=== PATIENT | female | born 1955 | race Caucasian/White ===

== ENCOUNTER 2023-09-01 07:59 | Emergency (ER) | payer OTHER | END 2023-09-01 11:15 | disposition home or self-care (01) | LOC: CSHERS 07:59 | DX: M62.830 Muscle spasm of back (principal); M79.7 Fibromyalgia; I10 Essential (primary) hypertension; F17.210 Nicotine dependence, cigarettes, uncomplicated; Z79.899 Other long term (current) drug therapy | CPT/HCPCS: 72040; 96372; 99283; J1885; J2360 ==

== ENCOUNTER 2024-02-10 11:12 | Outpatient (CLI) | payer OTHER | END 2024-02-10 11:13 | disposition home or self-care (01) | LOC: CSHMRI 11:12 | PROVIDERS: ATTEND Chiropractor | DX: G25.0 Essential tremor (principal); I67.89 Other cerebrovascular disease | CPT/HCPCS: 70551 ==

== ENCOUNTER 2024-02-17 10:40 | Outpatient (CLI) | payer OTHER | END 2024-02-17 10:41 | disposition home or self-care (01) | LOC: CSHMAMMO 10:40 | PROVIDERS: ATTEND Chiropractor | DX: Z12.31 Encounter for screening mammogram for malignant neoplasm of breast (principal); Z80.3 Family history of malignant neoplasm of breast; Z98.82 Breast implant status | CPT/HCPCS: 77063; 77067 ==

== ENCOUNTER 2024-05-30 12:26 | Emergency (ER) | payer OTHER ==
[2024-05-30] MEDS ORDERED: Lidocaine 4% Patch ONE (13:47)
[2024-05-30] MEDS ORDERED: Morphine 4 MG/ML VIAL ONE ×3 (13:47→17:01)
== END 2024-05-30 17:19 | disposition home or self-care (01) ==
LOC: CSHERS 12:26
DX: S32.10XA Unspecified fracture of sacrum, initial encounter for closed fracture (principal); I10 Essential (primary) hypertension; F17.210 Nicotine dependence, cigarettes, uncomplicated; X50.1XXA Overexertion from prolonged static or awkward postures, initial encounter
CPT/HCPCS: 72131; 72192; 96372; 99283; J2270

== ENCOUNTER 2024-12-14 08:02 | Outpatient (CLI) | payer OTHER | END 2024-12-14 08:03 | disposition home or self-care (01) | LOC: CSHRAD 08:02 | PROVIDERS: ATTEND Orthopaedic Surgery | DX: M54.50 Low back pain, unspecified (principal); Z98.1 Arthrodesis status | CPT/HCPCS: 72100 ==

== ENCOUNTER 2025-02-17 09:35 | Emergency (ER) | payer OTHER ==
[2025-02-17] MEDS ORDERED: Dexamethasone 10 MG/ML VIAL ONE (11:02)
[2025-02-17] MEDS ORDERED: HYDROcodone/Acetaminophen 5/325 mg Tablet ONE (11:02)
[2025-02-17] MEDS ORDERED: diphenhydrAMINE 25 MG CAP ONE (11:02)
[2025-02-17] MEDS ORDERED: Ketorolac Tromethamine 30 MG (1 mL) VIAL ONE (11:02)
== END 2025-02-17 11:38 | disposition home or self-care (01) ==
LOC: CSHERS 09:35
DX: M54.50 Low back pain, unspecified (principal); I10 Essential (primary) hypertension; F17.210 Nicotine dependence, cigarettes, uncomplicated
CPT/HCPCS: J1100; J1885; 96372; 99283